=== PATIENT | female | born 1990 | race Two or more races ===

== ENCOUNTER 2018-07-28 19:40 | Emergency (ER) | payer MEDICAID ==
[~2018-07-28] VITALS: Ht 167.6 cm; Wt 62.6 kg
[2018-07-28 20:25] LABS: Basophils # (auto) 0 uL; Basophils % (auto) 0.3 % (0.0-2.0); Eosinophils # (auto) 0 uL; Eosinophils % (auto) 0.1 % (0.0-7.0); Hematocrit 42.1 % (36.0-46.0); Hemoglobin 14.4 g/dL (12.2-16.2); Lymphocytes # (auto) 1.5 uL; Lymphocytes % (auto) 13.8 % (10.0-50.0); Mean Corpuscular Hemoglobin 30.6 pg (28.0-32.0); Mean Corpuscular Hgb Conc. 34.2 g/dL (32.0-36.0); Mean Corpuscular Volume 89.3 fL (80.0-100.0); Monocytes # (auto) 0.7 uL; Monocytes % (auto) 6.1 % (0.0-12.0); Neutrophils # (auto) 8.7 uL; Neutrophils % (auto) 79.7 % (37.0-80.0); Platelet Count (auto) 261 10^3/uL (140-450); Red Blood Cells 4.72 10^6/uL (4.0-5.20); Red Cell Distribution Width 13.9 % (11.8-14.3); White Blood Cell 10.9 10^3/uL (4.4-10.8)
[2018-07-28 20:33] LABS: Urine Bacteria NONE SEEN /hpf (None Seen); Urine Blood Negative /uL (Negative); Urine Specific Gravity 1.018 (1.001-1.035); Urine WBC <1 /hpf (0 - 5)
[2018-07-28 20:39] LABS: BUN/Creatinine Ratio 14.8; Calcium 8.5 mg/dL (8.5-10.1); Potassium 3.6 mmol/L (3.5-5.1)
[2018-07-28] MEDS ORDERED: PROMETHAZINE HCL 25 MG/ML 1ML IV ONE (23:30)
[2018-07-28] MEDS ORDERED: SODIUM CHLORIDE 0.9% 1,000 ML IV ONE (23:30)
[2018-07-29 00:01] VITALS: BP 101/64
== END 2018-07-29 01:08 | disposition home or self-care (01) ==
LOC: ER 19:40
DX: O21.0 Mild hyperemesis gravidarum (principal); Z3A.08 8 weeks gestation of pregnancy
CPT/HCPCS: 36415; 80048; 81001; 84702; 85025; 96361; 96374; 99283; J2550; J7030